=== PATIENT | male | born 2000 | race Caucasian/White ===

== ENCOUNTER 2021-01-30 19:45 | Emergency (ER) | payer OTHER ==
[~2021-01-30] VITALS: Ht 182.9 cm; Wt 85.4 kg
[2021-01-30 19:46] VITALS: BP 137/60
[2021-01-30] MEDS ORDERED: ACETAMINOPHEN 500 MG TAB PO ONE (20:05)
[2021-01-30] MEDS ORDERED: ONDANSETRON 4 MG ORAL DISINTEGRATING TAB PO ONE (20:05)
[2021-01-30] MEDS ORDERED: IBUPROFEN 800 MG TAB PO ONE (20:05)
== END 2021-01-30 21:17 | disposition home or self-care (01) ==
LOC: M ED 19:45
DX: R50.83 Postvaccination fever (principal)
CPT/HCPCS: 99283; Q0162